=== PATIENT | male | born 1965 | race Caucasian/White ===

== ENCOUNTER 2019-08-18 12:56 | Emergency (ER) | payer MEDICAID, OTHER ==
[~2019-08-18] VITALS: Ht 177.8 cm; Wt 72.6 kg
[2019-08-18 13:13] VITALS: BP 131/71
[2019-08-18] MEDS ORDERED: HYDROmorphone HCL 2 MG/ML VL IV ONE ×2 (13:30→14:00)
[2019-08-18] MEDS ORDERED: ONDANSETRON HCL 4 MG/2 ML VIAL IV ONE (13:30)
[2019-08-18] MEDS ORDERED: ceFAZolin 1GM/50ML 50 ML IV ONE (14:00)
[2019-08-18] MEDS ORDERED: LIDOCAINE 1% HCL (LOCAL ANESTH.) INJ 20ML MDV IJ ONE (14:00)
== END 2019-08-18 15:30 | disposition home or self-care (01) ==
LOC: ER 12:56
DX: S62.616A Displaced fracture of proximal phalanx of right little finger, initial encounter for closed fracture (principal); S63.256A Unspecified dislocation of right little finger, initial encounter; S61.216A Laceration without foreign body of right little finger without damage to nail, initial encounter; S61.214A Laceration without foreign body of right ring finger without damage to nail, initial encounter; Z88.2 Allergy status to sulfonamides; V87.8XXA Person injured in other specified noncollision transport accidents involving motor vehicle (traffic), initial encounter; Y93.89 Activity, other specified; Y92.89 Other specified places as the place of occurrence of the external cause; Y99.8 Other external cause status
CPT/HCPCS: 12002; 73140; 96365; 96375; 96376; 99284; J0690; J1170; J2001; J2405

== ENCOUNTER 2020-06-15 14:11 | Emergency (ER) | payer MEDICAID ==
[~2020-06-15] VITALS: Ht 180.3 cm; Wt 75.7 kg
[2020-06-15 14:14] VITALS: BP 132/84
[2020-06-15 14:44] LABS: Basophils # (auto) 0.1 10 ^3/uL (0-0.2); Basophils % (auto) 0.8 % (0.0-2.0); Eosinophils # (auto) 0.1 10 ^3/uL (0-0.8); Eosinophils % (auto) 1.1 % (0.0-7.0); Hematocrit 40.6 % (41.0-53.0); Hemoglobin 13.6 g/dL (13.5-17.5); Lymphocytes # (auto) 2.2 10 ^3/uL (0.4-5.4); Lymphocytes % (auto) 28.1 % (10.0-50.0); Mean Corpuscular Hemoglobin 27.2 pg (28.0-32.0); Mean Corpuscular Hgb Conc. 33.6 g/dL (32.0-36.0); Mean Corpuscular Volume 81.1 fL (80.0-100.0); Monocytes # (auto) 0.9 10 ^3/uL (0-1.3); Monocytes % (auto) 11.2 % (0.0-12.0); Neutrophils # (auto) 4.5 10 ^3/uL (1.6-8.6); Neutrophils % (auto) 58.8 % (37.0-80.0); Nucleated Red Blood Cells % 0.1 %; Red Blood Cells 5.01 10^6/uL (4.5-5.90); Red Cell Distribution Width 14.7 % (11.8-14.3); White Blood Cell 7.7 10^3/uL (4.4-10.8)
[2020-06-15 14:56] LABS: Urine Bacteria NONE SEEN /hpf (None Seen); Urine Blood Negative /uL (Negative); Urine Mucus FEW (None Seen); Urine Specific Gravity 1.022 (1.001-1.035); Urine WBC 9 /hpf (0 - 3)
[2020-06-15 15:07] LABS: Albumin 4.2 g/dL (3.4-5.0); Calcium 9.1 mg/dL (8.5-10.1); Potassium 3.6 mmol/L (3.5-5.1)
[2020-06-15 15:09] LABS: BUN/Creatinine Ratio 16.2; Bilirubin, Total 0.3 mg/dL (0.2-1.0); Total Protein 7.9 g/dL (6.4-8.2)
[2020-06-15] MEDS ORDERED: KETOROLAC TROMETH 30 MG/ML 1ML VIAL IV ONE (17:30)
[2020-06-15] MEDS ORDERED: SODIUM CHLORIDE 0.9% 1,000 ML IVB ONE (17:30)
== END 2020-06-15 19:49 | disposition left against medical advice (07) ==
LOC: ER 14:11
DX: N20.0 Calculus of kidney (principal); N20.1 Calculus of ureter; N13.30 Unspecified hydronephrosis
CPT/HCPCS: 36415; 74176; 80053; 81001; 85025